=== PATIENT | female | born 1955 | race Caucasian/White ===

== ENCOUNTER 2018-02-03 08:13 | Outpatient (CLI) | payer BC ==
--- NOTE | 2018-02-03 08:45 | MMO ---
BILATERAL MAMMOGRAMS: HISTORY: Screening mammography. COMPARISON: Multiple exams, back to 01/18/2013. FINDINGS: Scattered fibroglandular densities and benign appearing calcifications. No dominant mass or suspicio us calcifications. The study was evaluated with the assistance of computer aided detection. IMPRESSION: BI-RADS Category 1-Negative. Suggest routine followup. POS: IAIN
== END 2018-02-03 08:14 | disposition home or self-care (01) ==
LOC: SCSMAMMO 08:13
PROVIDERS: ATTEND Family Medicine
DX: Z12.31 Encounter for screening mammogram for malignant neoplasm of breast (principal)
CPT/HCPCS: 77067